=== PATIENT | female | born 1970 | race Caucasian/White ===

== ENCOUNTER 2019-02-05 17:19 | Observation (INO) ==
[2019-02-05] MEDS ORDERED: Ipratropium/Albuterol Neb 3 ML IH ONE (18:16)
[2019-02-05] MEDS ORDERED: 0.9 % Sodium Chloride 1,000 ML IVC ONE (18:16)
[2019-02-05] MEDS ORDERED: Azithromycin 500 MG in 0.9 % Sodium Chloride 250 ML IVPB ONE (18:16)
--- NOTE | 2019-02-05 18:19 | Emergency Department Note ---
Disposition Clinical Impression: Hypoxia, Hyponatremia Pneumonia Qualifiers: Pneumonia type: due to unspecified organism Laterality: bilateral Lung locatio n: lower lobe of lung Qualified Code(s): J18.1 - Lobar pneumonia, unspecified organism Disposition: Admitted As Inpatient Condition: Fair Referrals: Nidia Velazquez CNP [Primary Care Provider] - Forms: ED Satisfaction Letter Time of Disposition: 19:06 SOB HPI - General Chief Complaint: ED Upper Respiratory Infection Stated Complaint: cough, fever, and body pain Time Seen by Provider: 02/05/19 18:10 Source: patient Mode of arrival: private vehicle Limitations: no limitations Nursing Notes Reviewed: Yes Vital Signs Reviewed: Yes - History of Present Illness Pt Subjective Complaint: shortness of breath, cough Onset (ago): week(s) (Several weeks but worse over the past couple days) Context: recent illness (Started with a bronchitis type illness about 6 weeks ago. Several other people in the household got the same thing but they all got better. Patient would get better and then get worse again and then better and then worse.) Severity: severe Consistency/Duration: gradually worsening Improves with: nothing Worsens with: exertion, coughing Known history of: COPD Associated symptoms: Reports: fever, cough, wheezing, sputum production Treatment prior to arrival: bronchodilator Cough present: Yes Cough Description: Productive Cough Frequency: Intermittent Sputum Amount: Moderate Sputum Color: Yellow - Related Data Home oxygen amount: none Home Medications Medication Instructions Recorded Confirmed Beclomethasone Diprop 80mcg [Qvar 1 puff IH DAILY 05/09/17 02/05/19 80 mcg] Salmeterol Xinafoate [Serevent 50 mcg IH DAILY 05/28/17 02/05/19 Diskus] Guaifenesin [Mucinex] 600 mg PO Q6H 02/05/19 02/05/19 Previous Rx's Medication Instructions Recorded Albuterol Sulfate [Proventil 2 puff IH QID #1 inhaler 05/09/17 Inhaler] Allergies Allergy/AdvReac Type Severity Reaction Status Date / Time No Known Allergies Allergy Verified 05/09/17 15:27 All systems ED: reviewed and negative except as stated. Constitutional: Reports: fever, chills ENT ED: Reports: congestion. Denies: ear pain, throat pain Cardiovascular: Reports: chest pain, dyspnea on exertion. Denies: palpitations Respiratory: Reports: cough, dyspnea, wheezes Gastrointestinal: Reports: vomiting (Posttussive vomiting). Denies: abdominal pain, diarrhea Musculoskeletal: Denies: back pain Integumentary: Denies: rash Neurological: Denies: headache Past Medical History - Past Medical History Attestation: Yes The following information was validated with the patient. Source: patient, obtained from family, nursing notes reviewed Medical history: Reports: asthma, COPD Surgical history: Reports: other (Tubal ligation) Psychiatric history: Reports: no psych history [employer] history: Reports: bilateral tubal ligation - Social History Smoking Status: Current every day smoker Smokeless Tobacco Status: No Alcohol use: Reports: occasionally Drug use: Reports: none Physical Exam - General Limitations: no limitations General appearance: alert, in no apparent distress - Head Head exam: atraumatic, normocephalic, normal inspection - Eye Eye exam: Present: normal appearance, PERRL, EOMI. Absent: scleral icterus, conjunctival injection - ENT ENT exam: normal exam, normal oropharynx, mucous membranes moist, TM's normal bilaterally, normal external ear exam - Neck Neck exam: Present: normal inspection, full ROM, trachea midline. Absent: meningismus, lymphadenopathy - Chest Chest inspection: Present: normal inspection, symmetric chest wall rise. Absent: tenderness - Respiratory Respiratory exam: Present: wheezes, other (Rales at the bases as well as wheezing). Absent: respiratory distress - Cardiovascular Cardiovascular exam: Present: normal rhythm, tachycardia, normal heart sounds - Abdominal Exam Abdominal exam: Present: soft, Non-Tender, normal bowel sounds - Extremities Exam Extremities exam: Present: normal inspection. Absent: pedal edema - Neurological Exam Neurological exam: Present: alert, oriented X3 - Psychiatric Psychiatric exam: Present: normal affect, normal mood - Skin Skin exam: Present: warm, dry. Absent: rash Course Course Narrative: Patient presents with complaint of shortness of breath. Sounds sounds like a respiratory illness on and off over the past couple weeks that just has continually gotten worse although it has waxed and waned. Now she is having fevers and chills. She showed up to the ER with a low oxygen sat of around 85% on room air. We will put her on oxygen. Lungs sound like there is a respirator y infection. Chest x-ray confirms bilateral pneumonia. Given the oxygen requirement, the patient will need to be admitted to the hospital. She does not appear toxic. I have ordered breathing treatments and Rocephin and Zithromax. I will speak with the hospitalist and arrange admission. - Reevaluation(s) Reevaluation #1: Labs came back showing hyponatremia with a sodium of 120. We will hydrate the patient with normal saline. She will be admitted to a telemetry unit. Time: 19:14 - Consultations Consultation #1: Dr. Ovalle, hospitalist - I discussed the case with the hospitalist. He is accepted the patient for admission. Time: 19:06 Vital Signs Temperature 99.2 F 02/05/19 17:23 Pulse Rate 121 02/05/19 17:23 Respiratory Rate 18 02/05/19 17:23 Blood Pressure 139/79 02/05/19 17:23 O2 Sat by Pulse Oximetry 82 02/05/19 17:23 Temperature 99.2 F 02/05/19 17:23 Pulse Rate 122 02/05/19 19:09 Respiratory Rate 22 02/05/19 19:09 Blood Pressure 144/91 02/05/19 19:09 O2 Sat by Pulse Oximetry 98 02/05/19 19:09 Oxygen Delivery Oxygen Delivery Nasal Cannula Shortness of Breath/Dyspnea - Lab Data Lab results reviewed: Yes I reviewed the patient's lab results. Result diagrams: 02/05/19 18:35 02/05/19 18:35 Lab Results 02/05/19 02/05/19 02/05/19 Range/Units 18:35 18:35 18:35 WBC 10.7 (4.3-11.1) K/mcL RBC 3.65 L (3.82-4.97) M/mcL Hgb 12.0 (11.5-15.4) g/dL Hct 33.5 L (35.3-44.9) % MCV 91.8 (83.0-100.0) fL MCH 32.9 (28.0-33.3) pg MCHC 35.8 H (31.6-35.5) g/dL RDW 12.2 (11.5-14.5) % Plt Count 398 (140-400) K/mcL MPV 8.6 L (9.4-12.4) fL Immature Gran % 0.5 (0-4) % Seg Neutrophils % 74.1 % Lymphocytes % 14.4 % Monocytes % 8.0 % Eosinophils % 2.5 % Basophils % 0.5 % Neutrophils # 7.9 (1.6-8.9) K/mcL Lymphocytes # 1.5 (0.6-4.6) K/mcL Monocytes # 0.9 (0.0-1.3) K/mcL Eosinophils # 0.3 (0.0-0.6) K/mcL Basophils # 0.1 (0.0-0.2) K/mcL Sodium 120 L* (136-145) mEq/L Potassium 3.3 L (3.5-5.1) mEq/L Chloride 83 L (98-107) mEq/L Carbon Dioxide 29 (23-29) mEq/L BUN 3 L (6-20) mg/dL Creatinine 0.52 L (0.60-1.20) mg/dL Est GFR ( Amer) > 60 (> 60) Est GFR (Non-Af Amer) > 60 (> 60) BUN/Creatinine Ratio 6 (6-26) Glucose 87 (70-105) mg/dL Calculated Osmolality 246 L (280-300) Lactic Acid 1.9 (0.5-2.2) mmol/L Calcium 9.1 (8.6-10.3) mg/dL - Radiology Data Radiology results reviewed: Yes I reviewed the patient's radiology results.
[2019-02-05 18:42] LABS: Basophils # 0.1 K/mcL (0.0-0.2); Basophils % 0.5 %; Eosinophils # 0.3 K/mcL (0.0-0.6); Eosinophils % 2.5 %; Hematocrit 33.5 % (35.3-44.9); Immature Granulocytes % 0.5 % (0-4); Lymphocytes # 1.5 K/mcL (0.6-4.6); Lymphocytes % 14.4 %; Mean Corpuscular HGB Conc 35.8 g/dL (31.6-35.5); Mean Corpuscular Hemoglobin 32.9 pg (28.0-33.3); Mean Corpuscular Volume 91.8 fL (83.0-100.0); Mean Platelet Volume 8.6 fL (9.4-12.4); Monocytes # 0.9 K/mcL (0.0-1.3); Neutrophils # 7.9 K/mcL (1.6-8.9); Platelet Count 398 K/mcL (140-400); Red Blood Count 3.65 M/mcL (3.82-4.97); Red Cell Distribution Width 12.2 % (11.5-14.5); Segmented Neutrophils % 74.1 %; White Blood Count 10.7 K/mcL (4.3-11.1)
[2019-02-05 19:09] LABS: BUN/Creatinine Ratio 6 (6-26); Blood Urea Nitrogen 3 mg/dL (6-20); Calcium 9.1 mg/dL (8.6-10.3); Carbon Dioxide 29 mEq/L (23-29); Chloride 83 mEq/L (98-107); Glucose 87 mg/dL (70-105); Osmolality,Calculated 246 (280-300); Potassium 3.3 mEq/L (3.5-5.1); Sodium 120 mEq/L (136-145); eGFR For African Americans > 60 (> 60); eGFR For Non-African Americans > 60 (> 60)
[2019-02-05] MEDS ORDERED: Nicotine 21 MG PATCH.TD24 TD STA (19:32)
[2019-02-05] MEDS ORDERED: Ondansetron 4 MG/2 ML VIAL IVP PRN (20:34)
[2019-02-05] MEDS ORDERED: Naloxone 0.4 MG/ML INJ IVP PRN (20:34)
[2019-02-05] MEDS: Ipratropium/Albuterol Neb 3 ML IH SCH ×2 (21:31→22:51)
[2019-02-05] MEDS ORDERED: *HR* OxyCODONE/APAP 5/325 TABLET PO PRN ×2 (22:13→22:17)
[2019-02-05] MEDS: *HR* OxyCODONE/APAP 5/325 TABLET PO PRN (22:26)
[2019-02-06] MEDS: 0.9 % Sodium Chloride 1,000 ML IVC SCH ×2 (01:15→09:25)
[2019-02-06] MEDS: *HR* OxyCODONE/APAP 5/325 TABLET PO PRN ×2 (02:24→08:36)
[2019-02-06] MEDS: Ipratropium/Albuterol Neb 3 ML IH SCH ×3 (04:00→12:26)
[2019-02-06] MEDS: Morphine Sulfate 2 MG/ML SYRINGE IVP PRN ×2 (06:03→10:07)
[2019-02-06 06:09] VITALS: BP 160/94
[2019-02-06 06:30] LABS: BUN/Creatinine Ratio 8 (6-26); Blood Urea Nitrogen 4 mg/dL (6-20); Calcium 8.9 mg/dL (8.6-10.3); Carbon Dioxide 32 mEq/L (23-29); Chloride 91 mEq/L (98-107); Glucose 89 mg/dL (70-105); Osmolality,Calculated 268 (280-300); Potassium 3.7 mEq/L (3.5-5.1); Sodium 131 mEq/L (136-145); eGFR For African Americans > 60 (> 60); eGFR For Non-African Americans > 60 (> 60)
[2019-02-06] MEDS ORDERED: NON-FORMULARY MEDICATION 1 EACH EACH (Salmeterol Xinafoate [Serevent Diskus] 50 MCG) IH SCH (09:00)
[2019-02-06] MEDS ORDERED: cefTRIAXone 1,000 MG in Water for inj. (sterile) 10 ML IVP SCH (09:00)
--- NOTE | 2019-02-06 12:31 | Internal Med History&Physical ---
Date of Encounter: 02/06/19 Time of Encounter: 11:50 Assessment and Plan (1) Pneumonia Current visit: Yes Status: Acute She was started on IV Rocephin and Zithromax in emergency room. She has remained afebrile. She states she feels improved and wishes to be discharged home. Qualifiers: Pneumonia type: due to unspecified organism Laterality: bilateral Lung location: lower lobe of lung Qualified Code(s): J18.1 - Lobar pneumonia, unspecified organism (2) Hypokalemia Current visit: Yes Status: Acute Potassium level now normalized to 3.7. (3) Hypoxia Current visit: Yes Status: Acute Room air oximetry will be checked on 6 minute walk prior to discharge. (4) Hyponatremia Current visit: Yes Status: Acute Sodium level has risen from 120 in emergency room to 131 on recheck today. 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 Internal Medicine - H&P: HPI Chief complaint: Cough, dyspnea, chest pain Admitted From: Emergency Dept Plans for Post Hospital Care: Home History of present illness: Ms. Villeda is a 48 year old female who came to emergency room stating she had onset of cough and dyspnea approximately 6 weeks earlier. The cough was initially productive of yellow and green sputum. She took 8 Keflex pills from a leftover prescription with slight improvement in symptoms. Over the ensuing weeks she had waxing and waning of symptoms. She took OTC medication without significant relief. She reports some vomiting and diarrhea in the first 2 weeks of illness but this resolved without recurrence. Her dyspnea worsened 3-4 days ago so she decided to come to emergency room. She was evaluated and found to have evidence of bibasilar pneumonia. She was admitted to [facility] floor for ongoing care needs. Respiratory history is significant for having smoked since age 17 occasionally up to 2 packs per day. She has not had PFTs and does not use home oxygen. She has not been tested for sleep apnea. She states she feels slightly improved at the present time and wishes to be discharged home. Past Med Surg Social Fam HX - Past Medical History Medical history: asthma, COPD Psychiatric history: no psych history - Past Surgical History Surgical History: other (Tubal ligation) Additional surgical history: tubal ligation - Social History Smoking Status: Current every day smoker Smokeless Tobacco Status: No Alcohol use: occasionally Drug use: none - Family History Mother Twin of Family Member: Yes, Fraternal Hx Family Cardiac Disorders: Yes (unknown) Hx Family Respiratory Disorders: Yes (father COPD, emphysema) Hx Family Cancer: Yes (grandmother "female cancer") Hx Family GI Disorders: No Hx Family Genitourinary Disorders: No Hx Family Endocrine Disorder: No Hx Family Musculoskeletal Disorders: No Hx Family Neuromuscular Disorders: No Hx Family Neurologic Disorders: No Hx Family HEENT Disorders: No Hx Family Autoimmune Disorders: No Hx Family Reproductive Disorders: No Hx Family Psychosocial Disorders: No Hx Family Medical Disorders: No Internal Medicine - H&P: Meds Albuterol Sulfate [Proventil Inhaler] 2 puff IH QID #1 inhaler 05/09/17 [Rx] Beclomethasone Diprop 80mcg [Qvar 80 mcg] 1 puff IH DAILY 05/09/17 [History] Salmeterol Xinafoate [Serevent Diskus] 50 mcg IH DAILY 05/28/17 [History] Guaifenesin [Mucinex] 600 mg PO Q6H 02/05/19 [History] Allergy/AdvReac Type Severity Reaction Status Date / Time No Known Allergies Allergy Verified 05/09/17 15:27 All Systems PM: A 10-system review of systems was performed and is negative for pertinent findings except as documented above in the HPI. Review of systems: Gen.: She states her weight has been stable for several months Cardiovascular: She denies hypertension CA heart failure angina DVT or pulmonary embolus Respiratory: As per history of present illness GI: She denies disorders of her liver gallbladder or exocrine pancreas : She denies hematuria dysuria or kidney stones. She has had tubal ligation. Neurologic: She denies large distribution strokes or seizures. Endocrine: She denies diabetes thyroid disease or hyperlipidemia Hematology/oncology: She denies blood disorders cancers or anemia Psychiatric: She has feelings of anxiety at times but does not take medication. She denies significant depression or other mental health diagnoses. [place] skeletal: She has DJD but denies gout or other bone joint or muscle di sorders. - Constitutional Vitals: Temp Pulse Resp BP Pulse Ox 98.5 F 90 16 160/94 97 02/06/19 06:07 02/06/19 06:07 02/06/19 08:26 02/06/19 06:07 02/06/19 08:26 Exam: Gen.: She is a well-developed well-nourished female resting comfortably in bed who appears in no acute distress HEENT: Head is atraumatic and normocephalic. Eyes: EOMI. There is no scleral icterus. Mouth: Mucosa is moist. Neck: Supple and nontender. There is no thyromegaly or adenopathy noted. Heart: Regular without murmurs gallops or ectopics Chest: She has nontender chest wall to light sternal/costochondral joint compression. Lungs: No wheezes or crackles are heard. She has slight egophony in the bases bilaterally. Abdomen: Soft and nontender. No masses or guarding are noted. Extremities: She is wearing SUZE hose bilaterally which I did not remove. There is no pitting edema palpated through the SUZE hose. Neurologic: Mental status: She is talkative and a good historian. Cranial nerves: Smile is symmetric. Forehead wrinkles bilaterally. Tongue protrudes midline. EOMI. Motor: There is no pronator drift. Cerebellar: Finger to nose is intact bilaterally. Skin: Warm and dry Internal Med - H&P Results - Labs CBC & Chem 7: 02/05/19 18:35 02/06/19 04:55 Labs: Short CBC 02/05/19 Range/Units 18:35 WBC 10.7 (4.3-11.1) K/mcL Hgb 12.0 (11.5-15.4) g/dL Hct 33.5 L (35.3-44.9) % Plt Count 398 (140-400) K/mcL Neutrophils # 7.9 (1.6-8.9) K/mcL BMP 02/05/19 02/06/19 18:35 04:55 Sodium 120 L* 131 L D Potassium 3.3 L 3.7 Chloride 83 L 91 L Carbon Dioxide 29 32 H BUN 3 L 4 L Creatinine 0.52 L 0.52 L Glucose 87 89 Calcium 9.1 8.9 - Impressions ITS Impressions Chest X-Ray 02/05/19 18:04 IMPRESSION: Extensive bilateral opacities primarily in the lower lung farah suggesting multifocal pneumonia or possible atypical infectious/inflammatory process. RECOMMENDATIONS: Radiographic follow up to resolution. D/ / Nicole Ellington MD / Nicole Ellington MD Interpreting Provider: Nicole Ellington MD
--- NOTE | 2019-02-06 12:42 | Discharge Summary ---
Orders not resulted at time of discharge: Pending orders 02/05/19 18:50 Culture,Blood [] Stat Date of Encounter: 02/06/19 Time of Encounter: 11:50 - Discharge Diagnosis (1) Pneumonia Priority: Primary Status: Acute Qualifiers: Pneumonia type: due to unspecified organism Laterality: bilateral Lung location: lower lobe of lung Qualified Code(s): J18.1 - Lobar pneumonia, unspecified organism (2) Hypokalemia Priority: Secondary Status: Resolved (3) Hypoxia Priority: Secondary Status: Acute (4) Hyponatremia Priority: Secondary Status: Acute Hospital course: Ms. Villeda is a 48 year old female who came to emergency room stating she had onset of cough and dyspnea approximately 6 weeks earlier. The cough was initially productive of yellow and green sputum. She took 8 Keflex pills from a leftover prescription with slight improvement in symptoms. Over the ensuing weeks she had waxing and waning of symptoms. She took OTC medication without significant relief. She reports some vomiting and diarrhea in the first 2 weeks of illness but this resolved without recurrence. Her dyspnea worsened 3-4 days ago so she decided to come to emergency room. She was evaluated and found to have evidence of bibasilar pneumonia. She was admitted to [facility] floor for ongoing care needs. Initial orders were written by the emergency room physician. I saw her on February 06 and performed a history physical and discharge. She was given IV Rocephin and Zithromax in emergency room. Temperature ladi to 99.5 the evening of February 05 and then decreased to WNL. When I she stated she felt improved and wished to be discharged home. She will continue with antibiotic and pro biotic for 5 additional days at discharge. Sodium level ladi to 131 on February 06. Her PCP can monitor labs. Potassium level normalized to 3.7. Room air oximetry will be checked on 6 minute walk prior to discharge. I encouraged her to become a nonsmoker. She will follow with her PCP Nidia Velazquez CNP within 1 week. - Time Spent with Patient Total time spent providing and/or coordinating discharge services: - Discharge Medications Prescriptions: New Cefuroxime PO [Ceftin] 500 mg PO Q12HR #10 tablet Lactobacillus [Culturelle] 1 each PO BID #10 cap.sprink Azithromycin [Zithromax] 250 mg PO DAILY #5 tablet Continued Beclomethasone Diprop 80mcg [QVAR 80 mcg] 1 puff IH DAILY Albuterol Sulfate [Proventil Inhaler] 2 puff IH QID #1 inhaler Salmeterol Xinafoate [Serevent Diskus] 50 mcg IH DAILY Guaifenesin [Mucinex] 600 mg PO Q6H Home Medications: Albuterol Sulfate [Proventil Inhaler] 2 puff IH QID #1 inhaler 05/09/17 [Rx] Beclomethasone Diprop 80mcg [QVAR 80 mcg] 1 puff IH DAILY 05/09/17 [History] Salmeterol Xinafoate [Serevent Diskus] 50 mcg IH DAILY 05/28/17 [History] Guaifenesin [Mucinex] 600 mg PO Q6H 02/05/19 [History] Azithromycin [Zithromax] 250 mg PO DAILY #5 tablet 02/06/19 [Rx] Cefuroxime PO [Ceftin] 500 mg PO Q12HR #10 tablet 02/06/19 [Rx] Lactobacillus [Culturelle] 1 each PO BID #10 cap.sprink 02/06/19 [Rx] Allergies/Adverse Reactions: Allergy/AdvReac Type Severity Reaction Status Date / Time No Known Allergies Allergy Verified 05/09/17 15:27 Date of admission: 02/05/19 20:07 Primary care physician: Nidia Velazquez CNP - Constitutional Vitals: Temp Pulse Resp BP Pulse Ox 98.5 F 90 16 160/94 98 02/06/19 06:07 02/06/19 06:07 02/06/19 12:27 02/06/19 06:07 02/06/19 12:27 - Patient Status Disposition: Home, Self-Care Condition: Fair - Discharge Instructions Follow Up With: Nidia Velazquez CNP [Primary Care Provider] - 1 week - Diet and Activity Activity: resume usual activities as tolerated Diet: advance to your usual diet
[2019-02-06] MEDS ORDERED: Azithromycin 500 MG in 0.9 % Sodium Chloride 250 ML IVPB SCH (20:00)
== END 2019-02-06 14:04 | disposition home or self-care (01) ==
LOC: EMEROOPIK 17:19 → INPPIK 17:19
PROVIDERS: ADMIT Internal Medicine; ATTEND Internal Medicine